=== PATIENT | male | born 1980 | race Two or more races ===

== ENCOUNTER → 2019-09-18 | Emergency (ER) | payer MEDICAID ==
[~2019-09-18] VITALS: Ht 177.8 cm; Wt 77.1 kg
[~2019-09-18] MED LIST: ACETAMINOPHEN ES 500 MG TABLET ONE; LIDOCAINE 1%-EPI 1:100,000 20 ML VIAL ONE; TDAP [DIPH/PERTUSSIS/TET] 0.5 ML VIAL IM ONE
[2019-09-18 20:40] VITALS: BP 128/75
--- NOTE | 2019-09-18 20:51 | NUR ---
[facility] AT BEDSIDE
--- NOTE | 2019-09-18 20:58 | NUR ---
[facility] AT BEDSIDE FOR WOUND CARE
[2019-09-18] MEDS: TDAP [DIPH/PERTUSSIS/TET] 0.5 ML VIAL IM ONE (21:14)
--- NOTE | 2019-09-18 21:15 | NUR ---
PATIENT TAKEN TO CT.
[2019-09-18] MEDS: LIDOCAINE 1%-EPI 1:100,000 20 ML VIAL TP ONE (22:05)
[2019-09-18] MEDS: ACETAMINOPHEN ES 500 MG TABLET PO ONE (22:05)
--- NOTE | 2019-09-18 22:33 | NUR ---
AT BEDSIDE FOR SUTURE
--- NOTE | 2019-09-18 23:23 | NUR ---
Patient discharged to home in stable condition. Written and verbal after care instructions given. Patient verbalizes understanding of instruction.
== END | disposition home or self-care (01) ==
LOC: ER 20:34
DX: S01.511A Laceration without foreign body of lip, initial encounter (principal); S01.81XA Laceration without foreign body of other part of head, initial encounter; F17.210 Nicotine dependence, cigarettes, uncomplicated; V22.4XXA Motorcycle driver injured in collision with two- or three-wheeled motor vehicle in traffic accident, initial encounter; Y93.55 Activity, bike riding; Y92.413 State road as the place of occurrence of the external cause; Y99.8 Other external cause status
CPT/HCPCS: 12013; 70450; 70486; 90471; 90715; 99285; A6403; J3490

== ENCOUNTER 2020-11-21 13:13 | Emergency (ER) | payer MEDICAID ==
[~2020-11-21] VITALS: Ht 177.8 cm; Wt 86.2 kg
[2020-11-21 13:17] VITALS: BP 149/81
[2020-11-21] MEDS ORDERED: PENICILLIN G BENZATHINE 2.4 MMU/4 ML ML IM ONE ×2 (13:27→13:30)
--- NOTE | 2020-11-21 13:31 | NUR ---
Patient discharged to home in stable condition. Written and verbal after care instructions given. Patient verbalizes understanding of instruction. Pt ambulatory with a steady gait
== END 2020-11-21 13:46 | disposition home or self-care (01) ==
LOC: ER 13:13
DX: A53.9 Syphilis, unspecified (principal)
CPT/HCPCS: 96372; 99283; J0558